=== PATIENT | female | born 1995 ===

== ENCOUNTER 2020-01-12 13:30 | Emergency (ER) | payer BC, OTHER ==
[2020-01-12 15:58] VITALS: BP 132/68
--- NOTE | 2020-01-12 16:46 | UC ---
Throat Pain/Nasal Abhijit HPI - HPI Summary HPI Summary: Pt c/o sudden onset of fever, chills, ST, X 2 days. Pt has known exposure to mono - History of Current Complaint Chief Complaint: UCRespiratory Stated Complaint: B/L EAR COMPLAINT, FEVER, ST Time Seen by Provider: 01/12/20 16:10 Hx Obtained From: Patient Hx Last Menstrual Period: 12/29/19 ?: No Onset/Duration: Sudden Onset, Lasting Days, Still Present Severity: Moderate Pain Intensity: 6 Pain Scale Used: 0-10 Numeric Cough: None Associated Signs & Symptoms: Positive: Dysphagia, Fever - Epiglottits Risk Factors Epiglottis Risk Factors: Sudden Onset - Allergies/Home Medications Allergies/Adverse Reactions: Allergies Allergy/AdvReac Type Severity Reaction Status Date / Time Penicillins Allergy Unknown Rash Verified 01/12/20 15:50 Home Medications: Home Medications Ibuprofen TAB* [Advil TAB*] 400 mg PO Q6H PRN 01/12/20 [History Confirmed ] Norgestimate-Ethinyl Estradiol [Gci-Gd-Yhfpdldkr Tablet] 1 each PO DAILY [History Confirmed 01/12/20] PMH/Surg Hx/FS Hx/Imm Hx Previously Healthy: Yes - Surgical History Surgical History: None - Family History Known Family History: Positive: Cardiac Disease - Social History Occupation: Student Lives: Dormitory/Roommates Alcohol Use: Rare Substance Use Type: None Smoking Status (MU): Never Smoked Tobacco Have You Smoked in the Last Year: No - Immunization History Vaccination Up to Date: Yes Review of Systems All Other Systems Reviewed And Are Negative: Yes Constitutional: Positive: Fever, Chills, Fatigue Skin: Positive: Negative Eyes: Positive: Negative ENT: Positive: Sore Throat Respiratory: Positive: Negative Cardiovascular: Positive: Negative Gastrointestinal: Positive: Negative Genitourinary: Positive: Negative Motor: Positive: Negative Neurovascular: Positive: Negative Musculoskeletal: Positive: Myalgia Neurological/Mental Status: Positive: Negative Psychological: Positive: Negative Is Patient Immunocompromised?: No Physical Exam Triage Information Reviewed: Yes Appearance: Ill-Appearing Vital Signs: Initial Vital Signs Temp 99.2 F 01/12/20 15:51 Pulse 100 01/12/20 15:51 Resp 18 01/12/20 15:51 BP 132/68 01/12/20 15:51 Pulse Ox 100 01/12/20 15:51 Vital Signs Reviewed: Yes Eye Exam: Normal ENT: Positive: Pharyngeal erythema Dental Exam: Normal Neck exam: Normal Respiratory Exam: Normal Cardiovascular Exam: Normal Musculoskeletal Exam: Normal Neurological Exam: Normal Psychological Exam: Normal Skin Exam: Normal Throat Pain/Nasal Course/Dx - Course Course Of Treatment: Pt denies parotid gland tenderness, - Differential Dx/Diagnosis Differential Diagnosis/HQI/PQRI: Mononucleosis, Pharyngitis, Tonsillitis Provider Diagnosis: Sore throat Discharge ED - Sign-Out/Discharge Documenting (check all that apply): Patient Departure All imaging exams completed and their final reports reviewed: No Studies - Discharge Plan Condition: Stable Disposition: HOME Patient Education Materials: Pharyngitis (ED) Referrals: Raisa Johnson PA [Primary Care Provider] - - Billing Disposition and Condition Condition: STABLE Disposition: Home
--- NOTE | 2020-01-14 07:20 | UC ---
- Progress Note Progress Note: Please advise test for mono was negative (she had a contact with mono). Course/Dx - Diagnoses Provider Diagnoses: Sore throat Discharge ED - Sign-Out/Discharge Documenting (check all that apply): Post-Discharge Follow Up All imaging exams completed and their final reports reviewed: No Studies - Discharge Plan Condition: Stable Disposition: HOME Patient Education Materials: Pharyngitis (ED) Referrals: Raisa Johnson PA [Primary Care Provider] - - Billing Disposition and Condition Condition: STABLE Disposition: Home
== END 2020-01-12 16:36 | disposition home or self-care (01) ==
LOC: UCCORT 13:30
DX: J02.9 Acute pharyngitis, unspecified (principal); R50.9 Fever, unspecified; Z88.0 Allergy status to penicillin
CPT/HCPCS: 36415; 86308; 87651; 99211; G0463